=== PATIENT | male | born 2000 | race Hispanic/Latino ===

== ENCOUNTER 2024-07-12 12:30 | Emergency (ER) | payer MEDICAID ==
[~2024-07-12] VITALS: Ht 182.9 cm; Wt 68.0 kg
[2024-07-12 13:33] LABS: BASOPHILS # (AUTO) 0.03 K/uL (0.00-0.20); BASOPHILS % (AUTO) 0.6 % (0.0-5.0); HEMATOCRIT 47.1 % (42-54); LYMPHOCYTES # (AUTO) 1.8 K/uL (1.0-4.8); LYMPHOCYTES % (AUTO) 39.2 % (21.0-51.0); MEAN CORPUSCULAR HGB CONC 34.2 g/dL (32.0-36.0); MEAN CORPUSCULAR VOLUME 82.1 fL (79-99); MONOCYTES # (AUTO) 0.4 K/uL (0.1-1.0); MONOCYTES % (AUTO) 8.9 % (3.0-13.0); NEUTROPHILS # (AUTO) 2.4 K/uL (1.8-7.7); NEUTROPHILS % (AUTO) 51.3 % (40.0-77.0); PLATELET COUNT (AUTO) 308 K/uL (130-400); RED BLOOD CELL COUNT(AUTO) 5.74 MIL/uL (4.50-6.20); WHITE BLOOD COUNT (AUTO) 4.6 K/uL (4.8-10.8)
[2024-07-12 13:46] LABS: POTASSIUM 3.9 mmol/L (3.5-5.1)
--- NOTE | 2024-07-12 14:08 | ERN ---
General Chief Complaint: Psych Evaluation Stated Complaint: DEHYDRATION SENT FROM [facility] Time Seen by MD: 12:31 Time Seen by Midlevel: 12:31 Source: patient History of Present Illness Initial Comments 32-year-old male presents to the ED from [facility] for possible dehydration. Patient was sent due to "not eating or drinking anything" and were requesting CK level. On arrival patient has no complaints. Allergies: Coded Allergies: trazodone (Unverified Allergy, Intermediate, 07/12/24) Past Medical History Past Medical History: Bipolar, Seizure Past Surgical History: None ROS Dictation Constitutional: Positive for decreased oral intake Negative for fever,chills, and weight loss Eyes: Negative for injury, pain,redness, and discharge ENT: Negative for injury,pain or swelling Cardiovascular: Negative for chest pain, palpitations, and edema Respiratory: Negative for shortness of breath, cough, and wheezing, Abdomen/GI: Negative for abdominal pain, nausea, vomiting, diarrhea, and constipation Back: Negative for injury and pain : Negative for injury, bleeding and discharge MS/Extremity: Negative for injury and deformity Skin: Negative for rash, and discoloration Neuro: Negative for headache, weakness, numbness, tingling, and seizure Psych: Negative for suicide ideation, homicidal ideation, and hallucinations Physical Exam Physical Exam Dictation General: awake, alert, NAD Head/Face: Normocephalic, atraumatic Eyes: PERRL, EOMI, vision at baseline ENT: oral cavity clear, TMs clear, dry mucous membranes Neck: Trachea midline, supple, no nuchal rigidity Cardiovascular: RRR, normal S1/S2, No MRGs, no JVD Respiratory: CTAB, no respiratory distress, No rales or wheezes Abdomen: Soft, non-tender, non-distended, normal bowel sounds, no guarding or rebound. Skin: Warm, dry, normal turgor, no rash MS/Extremity: Pulses equal, no cyanosis, neurovascular intact, FROM Neuro: COAx4, GCS 15, strength 5/5, CN 2-12 intact, normal cerebellar exam, normal gait, Psych: Normal behavior, mood, and affect normal Results Laboratory and Microbiology Lab and Micro Result Laboratory Tests Test 07/12/24 13:20 07/12/24 17:40 White Blood Count 4.6 K/uL (4.8-10.8) L Red Blood Count 5.74 MIL/uL (4.50-6.20) Hemoglobin 16.1 g/dL (14.0-18.0) Hematocrit 47.1 % (42-54) Mean Corpuscular Volume 82.1 fL (79-99) Mean Corpuscular Hemoglobin 28.0 pg (27.0-33.0) Mean Corpuscular Hemoglobin Concent 34.2 g/dL (32.0-36.0) Red Cell Distribution Width 13.0 % (11.0-15.5) Platelet Count 308 K/uL (130-400) Mean Platelet Volume 10.1 fL (7.5-10.5) Immature Granulocyte % (Auto) 0.0 % (0-1) Neutrophils (%) (Auto) 51.3 % (40.0-77.0) Lymphocytes (%) (Auto) 39.2 % (21.0-51.0) Monocytes (%) (Auto) 8.9 % (3.0-13.0) Eosinophils (%) (Auto) 0.0 % (0.0-8.0) Basophils (%) (Auto) 0.6 % (0.0-5.0) Neutrophils # (Auto) 2.4 K/uL (1.8-7.7) Lymphocytes # (Auto) 1.8 K/uL (1.0-4.8) Monocytes # (Auto) 0.4 K/uL (0.1-1.0) Eosinophils # (Auto) 0.00 K/uL (0.00-0.70) Basophils # (Auto) 0.03 K/uL (0.00-0.20) Absolute Immature Granulocyte (auto 0.00 K/uL (0-1) Nucleated Red Blood Cells 0.0 % (0.0-0.19) Sodium Level 146 mmol/L (136-145) H Potassium Level 3.9 mmol/L (3.5-5.1) Chloride Level 103 mmol/L (101-111) Carbon Dioxide Level 30 mmol/L (21-32) Blood Urea Nitrogen 11 mg/dL (7-18) Creatinine 1.0 mg/dL (0.5-1.3) Glomerular Filtration Rate Calc 104 mL/min (>90) Random Glucose 82 mg/dL (70-105) Total Calcium 9.7 mg/dL (8.5-10.1) Total Creatine Kinase 347 U/L (21-232) H 338 U/L (21-232) H Labs Reviewed?: Yes MDM MDM: 32-year-old male presents to the ED from [facility] for possible dehydration. Patient was sent due to "not eating or drinking anything" and were requesting CK level. On arrival patient has no complaints. His physical exam induration is unremarkable. His CBC is stable. His chemistries reveal a sodium of 146 consistent with dehydration. His CK is slightly elevated at 347. Liz ent was given 1 L of IV fluids and his CK was repeated. Repeat CK is 338. There was a huge delay in getting the patient back into a room, having him drawn, and the administration of IV fluids due to not having any room in the emergency department. Given that his CK only trended downwards a couple of points he was given another L of IV fluids and a 3rd CK was obtained which appea rs to be trending downward. Patient will be discharged back to [facility]. Differential diagnosis: Dehydration, electrolyte imbalance Previous outside records reviewed: Old ER visits. Need for hospitalization: Patient does not meet criteria for hospitalization. Need for emergency major/minor surgery: No Patient's prior external medical records from other ER visits were reviewed by me as indicated. Prior testing and results from previous visits were reviewed. Prior tests were taken into account with medical decision making and resource utilization, independent historian/historians were used to obtain complete m edical history. I independently interpreted the test that were performed, results were reviewed by me and considered findings on radiology if ordered. Medical management and examination interpretation discussions were had by me with other qualified healthcare professionals as indicated for the patient's care. ED Course Orders Procedure Category Date Status Time Basic Metabolic Panel LAB 07/12/24 Complete 12:31 Cbc With Differential LAB 07/12/24 Complete 12:31 Creatine Kinase, Total LAB 07/12/24 Complete 12:31 0.9%Nacl 1000ml (Ns PHA 07/12/24 Complete 1000ml) 13:00 Creatine Kinase, Total LAB 07/12/24 Complete 14:59 0.9%Nacl 1000ml (Ns PHA 07/12/24 Complete 1000ml) 18:30 *Nursing CPOE 07/12/24 Transmitted Communication: 19:18 Creatine Kinase, Total LAB 07/12/24 Logged 19:18 Current Medications Medications (Trade) Dose Ordered Sig/Jose Route PRN Reason Start Time Stop Time Status Last Admin Dose Admin Sodium Chloride 1,000 ml @ 0 mls/hr ONCE ONCE IV 07/12/24 13:00 07/12/24 13:01 DC 07/12/24 16:23 Sodium Chloride 1,000 ml @ 0 mls/hr ONCE ONCE IV 07/12/24 18:30 07/12/24 18:31 DC 07/12/24 18:23 Vital Signs Date Time Temp Pulse Resp B/P (MAP) Pulse Ox O2 Delivery O2 Flow Rate FiO2 07/12/24 13:12 97.0 102 20 99/76 99 Room Air 0 DX & DISP Disposition: Discharge Departure Impression: Primary Impression: Dehydration Additional Impression: Medical clearance for psychiatric admission Condition: Stable Time of Disposition: 20:41 I have reviewed, & agreed with my scribe's, documentation. (Entered by Jessica Webb, acting as a scribe for RADHA Young) I have reviewed the case, and I agree with, Diagnosis and Plan I performed the substantive portion of the visit. I have reviewed and personally made and approve the management plan that is documented in the note by myself or the JOSEPH. I acknowledge for responsibility for the patient's management plan. I personally scribed for DAMIÁN YOUNG ([facility]) on 07/12/24 at 14:08. Electronically submitted by Jessica Webb ([email or web address]). DAMIÁN YOUNG Jul 12, 2024 14:08
[2024-07-12] MEDS: 0.9%NACL 1000ML 1,000 ML IV ONE ×2 (16:23→18:23)
[2024-07-12 19:00] VITALS: TEMP 97
[2024-07-12 21:00] VITALS: BP 118/65; PULSE 76; RESP 18; O2SAT 100
== END 2024-07-12 21:30 ==
LOC: EDBD 12:30 → EDH 12:30
DX: E86.0 Dehydration (principal); Z00.8 Encounter for other general examination; Z20.822 Contact with and (suspected) exposure to COVID-19
CPT/HCPCS: 99283; 96360; 96361; 82550 ×3; 80048; 85025; 36415; J7030 ×2